=== PATIENT | male | born 1990 | race Caucasian/White ===

== ENCOUNTER 2017-03-14 17:53 | Emergency (ER) | payer SELFPAY ==
--- NOTE | 2017-03-14 17:58 | EDM.PDOC ---
<Ziyad Vital - Last Filed: 03/14/17 18:19> ED HPI GENERAL MEDICAL PROBLEM - General Stated Complaint: UNK Time Seen by Provider: 03/14/17 17:57 Source of Information: Reports: Patient - History of Present Illness INITIAL COMMENTS - FREE TEXT/NARRATIVE: HISTORY AND PHYSICAL: History of present illness: []Patient was found unresponsive at scene per EMS had been using some opiates they gave 4 mg of Narcan patient now awake and alert. He states that he was smoking opiates on EMS arrival O2 sat was at 50% with only 4 breaths per minute Alert oriented no distress at current no fever nausea vomiting chills sweats no chest pain shortness breath headache dizziness palpitation about a urine symptoms Review of systems: As per history of present illness and below otherwise all systems reviewed and negative. Past medical history: As per history of present illness and as reviewed below otherwise noncontributory. Surgical history: As per history of present illness and as reviewed below otherwise noncontributory. Social history: No reported history of drug or alcohol abuse. Family history: As per history of present illness and as reviewed below otherwise noncontributory. Physical exam: HEENT: Atraumatic, normocephalic, pupils reactive, negative for conjunctival pallor or scleral icterus, mucous membranes moist, throat clear, neck supple, nontender, trachea midline. Lungs: Clear to auscultation, breath sounds equal bilaterally, chest nontender. Heart: S1S2, regular, negative for clicks, rubs, or JVD. Abdomen: Soft, nondistended, nontender. Negative for masses or hepatosplenomegaly. Negative for costovertebral tenderness. Pelvis: Stable nontender. Genitourinary: Deferred. Rectal: Deferred. Extremities: Atraumatic, negative for cords or calf pain. Neurovascular unremarkable. Neuro: Awake, alert, oriented. Cranial nerves II through XII unremarkable. Cerebellum unremarkable. Motor and sensory unremarkable throughout. Exam nonfocal. Diagnostics: []Lab as below EKG Chest 1 view Glucose EMS check 248 Therapeutics: []Narcan 4 mg provided via EMS 1 L normal saline bolus Patient will be endorsed to Dr. Almonte to follow lab and disposition as appropriate Impression: []Hypoxia resolved Respiratory suppression resolved Opioid overdose with reversal Definitive disposition and diagnosis as appropriate pending reevaluation and review of above. - Related Data Allergies Allergy/AdvReac Type Severity Reaction Status Date / Time No Known Allergies Allergy Verified 03/30/14 15:30 Home Meds: Home Meds . [No Known Home Meds] 03/14/17 [History] Course - Vital Signs Last Recorded V/S: Last Vital Signs Temp 36.9 C 03/14/17 18:15 Pulse 105 H 03/14/17 18:15 Resp 18 03/14/17 18:15 BP 127/84 03/14/17 18:15 Pulse Ox 97 03/14/17 18:15 - Orders/Labs/Meds Orders: Active Orders 24 hr Category Date Time Status EKG Documentation Completion [RC] STAT Care 03/14/17 17:59 Active Chest 1V Frontal [CR] Stat Exams 03/14/17 17:59 Taken Labs: Laboratory Tests 03/14/17 03/14/17 03/14/17 Range/Units 18:30 18:30 18:30 WBC 13.06 H (4.0-11.0) K/uL RBC 4.62 (4.50-5.90) M/uL Hgb 14.5 (13.0-17.0) g/dL Hct 42.5 (38.0-50.0) % MCV 92.0 (80.0-98.0) fL MCH 31.4 (27.0-32.0) pg MCHC 34.1 (31.0-37.0) g/dL RDW Std Deviation 44.6 (28.0-62.0) fl RDW Coeff of Jenny 13 (11.0-15.0) % Plt Count 181 (150-400) K/uL MPV 11.30 (7.40-12.00) fL Neut % (Auto) 77.1 (48.0-80.0) % Lymph % (Auto) 14.2 L (16.0-40.0) % Weld % (Auto) 6.0 (0.0-15.0) % Eos % (Auto) 2.5 (0.0-7.0) % Baso % (Auto) 0.2 (0.0-1.5) % Neut # (Auto) 10.1 H (1.4-5.7) K/uL Lymph # (Auto) 1.9 (0.6-2.4) K/uL Weld # (Auto) 0.8 (0.0-0.8) K/uL Eos # (Auto) 0.3 (0.0-0.7) K/uL Baso # (Auto) 0.0 (0.0-0.1) K/uL Nucleated RBC % 0.0 /100WBC Nucleated RBCs # 0 K/uL Sodium 137 (136-146) mmol/L Potassium 4.1 (3.5-5.1) mmol/L Chloride 107 (98-110) mmol/L Carbon Dioxide 23 (21-31) mmol/L BUN 14 (6.0-23.0) mg/dL Creatinine 1.1 (0.6-1.5) mg/dL Est Cr Clr Drug Dosing 106.30 mL/min Estimated GFR (MDRD) > 60.0 ml/min Glucose 179 H (60-110) mg/dL Calcium 8.1 L (8.8-10.8) mg/dL Total Bilirubin 0.3 (0.1-1.5) mg/dL AST 19 (5-40) IU/L ALT 17 (8-54) IU/L Alkaline Phosphatase 67 (40-150) Troponin I < 0.10 (0.0-0.29) NG/ML Total Protein 6.2 (6.0-8.0) g/dL Albumin 3.6 (3.5-5.0) g/dL Globulin 2.6 (2.0-3.5) g/dL Albumin/Globulin Ratio 1.4 (1.3-2.8) Meds: Medications Discontinued Medications Generic Name Dose Route Start Last Admin Trade Name Freq PRN Reason Stop Dose Admin Sodium Chloride 1,000 mls @ 999 mls/hr 03/14/17 17:59 03/14/17 18:10 Normal Saline IV 03/14/17 18:59 999 mls/hr STAT ONE Administration Departure - Departure Disposition: Home, Self-Care 01 Clinical Impression: Opioid overdose Qualifiers: Encounter type: initial encounter Injury intent: accidental or unintentional Qualified Code(s): T40.2X1A - Poisoning by other opioids, accidental ( unintentional), initial encounter Accidental overdose Qualifiers: Encounter type: initial encounter Qualified Code(s): T50.901A - Poisoning by unspecified drugs, medicaments and biological substances, accidental ( unintentional), initial encounter - Discharge Information Additional Instructions: The following information is given to patients seen in the emergency department who are being discharged to home. This information is to outline your options for follow-up care. We provide all patients seen in our emergency department with a follow-up referral. The need for follow-up, as well as the timing and circumstances, are variable depending upon the specifics of your emergency department visit. If you don't have a primary care physician on staff, we will provide you with a referral. We always advise you to contact your personal physician following an emergency department visit to inform them of the circumstance of the visit and for follow-up with them and/or the need for any referrals to a consulting specialist. The emergency department will also refer you to a specialist when appropriate. This referral assures that you have the opportunity for followup care with a specialist. All of these measure are taken in an effort to provide you with optimal care, which includes your followup. Under all circumstances we always encourage you to contact your private physician who remains a resource for coordinating your care. When calling for followup care, please make the office aware that this follow-up is from your recent emergency room visit. If for any reason you are refused follow-up, please contact the [facility] emergency department at and ask to speak to the emergency department charge nurse. [facility] Primary care- [place] [address] Please stop using drugs. Follow-up with one of our clinic physicians also connect with outpatient services if you need to return to ER as needed and as discussed <Amanda Bland - Last Filed: 03/14/17 19:13> ED HPI GENERAL MEDICAL PROBLEM - History of Present Illness INITIAL COMMENTS - FREE TEXT/NARRATIVE: As Dr. Bland dictating an addendum note as I assumed care of this patient at 1900 hrs. Currently the patient is awake alert oriented and speaking with me and in no respiratory distress with 99% sats on room air. He says he feels a little tired which I told him is not a typical as what ever drugs he did earlier are still in his system. I explained to him about Narcan and works and that he would need to be observed for some more time and if he was doing well that he could be discharged. He states understanding. I will plan on discharging him pending his clinical picture and this observation period. I canceled the UA and the UDS has in light of my conversation with him this is not going to change our care plan. Patient has a friend/family at the bedside who will be driving him home. Impression: Opioid overdose accidental with respiratory distress and hypoxia reversed stable ED ROS GENERAL - Review of Systems Review Of Systems: ROS reveals no pertinent complaints other than HPI. ED EXAM, GENERAL - Physical Exam Exam: See Below (See dictation) Departure - Departure Time of Disposition: 19:45 Condition: Good
[2017-03-14] MEDS ORDERED: Sodium Chloride 0.9% 1,000 ML IV ONE (17:59)
[2017-03-14 18:55] LABS: CHLORIDE,CL 107 mmol/L (98-110); SODIUM,NA 137 mmol/L (136-146)
--- NOTE | 2017-03-15 09:48 | CR ---
EXAM DATE: 03/14/17 PATIENT'S AGE: 26 Patient: GRECIA ROSS Facility: [place], [place] Site . Site : 1990 Study: XRay Chest [id number]/12/2017 6:25:44 PM Ordering Physician: Airam Lackey Final Report: INDICATION: Drug overdose, found unresponsive. alert and orientated in upon arrival of ER TECHNIQUE: Chest radiograph 1 view COMPARISON: None FINDINGS: Cardiovascular and mediastinum: The cardiac silhouette is normal in appearance and size. Mediastinum is within normal limits. Lungs and pleural spaces: Both lungs are unremarkable in appearance. No sign of pleural effusion. No pneumothorax is seen. Bones and soft tissues: No significant findings. IMPRESSION: 1. No acute cardiopulmonary disease seen. Dictated by: Wali White MD @ 03/14/2017 18:32:44 (Electronic Signature) Report Signed by Proxy. [facility]PITALJairo
== END 2017-03-14 20:17 | disposition home or self-care (01) ==
LOC: MW.ED 17:53
DX: T40.2X1A Poisoning by other opioids, accidental (unintentional), initial encounter (principal)
CPT/HCPCS: 36415; 71010; 80053; 84484; 85025; 96360; 99285; J7040; 99283

== ENCOUNTER 2017-04-21 15:19 | Emergency (ER) | payer SELFPAY ==
--- NOTE | 2017-04-21 16:41 | EDM.PDOC ---
ED HPI GENERAL MEDICAL PROBLEM - General Chief Complaint: ENT Problem Stated Complaint: SORE THROAT Time Seen by Provider: 04/21/17 15:20 - History of Present Illness INITIAL COMMENTS - FREE TEXT/NARRATIVE: HISTORY AND PHYSICAL: History of present illness: Patient is a 26-year-old male who presents to the emergency room with complaints of a sore throat, dry cough and fatigue 3 days. He is concerned he has strep throat. Denies any fever or chills. Denies any chest pain or shortness of breath. Denies any abdominal pain, nausea, vomiting or diarrhea. No history of smoking. Has not received the 2017/2017 influenza vaccine Review of systems: As per history of present illness and below otherwise all systems reviewed and negative. Past medical history: As per history of present illness and as reviewed below otherwise noncontributory. Surgical history: As per history of present illness and as reviewed below otherwise noncontributory. Social history: No reported history of drug or alcohol abuse. Family history: As per history of present illness and as reviewed below otherwise noncontributory. Physical exam: HEENT: Atraumatic, normocephalic, pupils reactive, negative for conjunctival pallor or scleral icterus, mucous membranes moist, mild erythema to the posterior oropharynx without exudate, no lymphadenopathy, neck supple, nontender , trachea midline. Lungs: Clear to auscultation, breath sounds equal bilaterally, chest nontender. Heart: S1S2, regular, negative for clicks, rubs, or JVD. Abdomen: Soft, nondistended, nontender. Negative for masses or hepatosplenomegaly. Negative for costovertebral tenderness. Pelvis: Stable nontender. Genitourinary: Deferred. Rectal: Deferred. Extremities: Atraumatic, negative for cords or calf pain. Neurovascular unremarkable. Neuro: Awake, alert, oriented. Cranial nerves II through XII unremarkable. Cerebellum unremarkable. Motor and sensory unremarkable throughout. Exam nonfocal. Diagnostics: Strep Therapeutics: [] Impression: Sore throat Viral illness Plan: 1. Please use the promethazine with codeine responsibly. You may take this every 4-6 hours as needed. Do not take while driving or needing to be functioning at school or work as this may cause drowsiness. He may take Tylenol and/or ibuprofen as needed for further pain relief. 2. Warm salt water gargles as needed 2-3 times per day area please get a new toothbrush once your sore throat has resolved. 3. Follow-up with your primary care provider in the next 1-2 days. Return to the ED as needed and as discussed. Definitive disposition and diagnosis as appropriate pending reevaluation and review of above. - Related Data Allergies Allergy/AdvReac Type Severity Reaction Status Date / Time No Known Allergies Allergy Verified 04/21/17 15:59 Home Meds: Home Meds . [No Known Home Meds] 03/14/17 [History] Past Medical History - Past Health History Medical/Surgical History: Denies Medical/Surgical History Psychiatric History: Reports: Addiction Social & Family History - Family History Family Medical History: Noncontributory - Tobacco Use Smoking Status *Q: Former Smoker Years of Tobacco use: 2 Packs/Tins Daily: 0.5 Used Tobacco, but Quit: Yes Month Tobacco Last Used: 04/2017 - Caffeine Use Caffeine Use: Reports: Coffee - Alcohol Use Days Per Week of Alcohol Use: 2 Number of Drinks Per Day: 5 Total Drinks Per Week: 10 - Recreational Drug Use Recreational Drug Use: Yes Recreational Drug Type: Reports: Marijuana/Hashish Other Recreational Drug Type: opiods Recreational Drug Use Frequency: Rarely ED ROS ENT - Review of Systems Review Of Systems: ROS reveals no pertinent complaints other than HPI. ED EXAM, ENT - Physical Exam Exam: See Below (See dictation) Course - Vital Signs Last Recorded V/S: Last Vital Signs Temp 37.6 C 04/21/17 15:59 Pulse 112 H 04/21/17 15:59 Resp 18 04/21/17 15:59 BP 136/67 04/21/17 15:59 Pulse Ox 95 04/21/17 15:59 - Orders/Labs/Meds Orders: Active Orders 24 hr Category Date Time Status CULTURE STREP A CONFIRMATION [] Stat Lab 04/21/17 15:54 Results STREP SCRN A RAPID W CULT CONF [RM] Stat Lab 04/21/17 15:54 Results Departure - Departure Time of Disposition: 16:39 Disposition: Home, Self-Care 01 Clinical Impression: Sore throat (viral), Viral illness - Discharge Information Referrals: PCP,None [Primary Care Provider] - Forms: ED Department Discharge Additional Instructions: My general discharge The following information is given to patients seen in the emergency department who are being discharged to home. This information is to outline your options for follow-up care. We provide all patients seen in our emergency department with a follow-up referral. The need for follow-up, as well as the timing and circumstances, are variable depending upon the specifics of your emergency department visit. If you don't have a primary care physician on staff, we will provide you with a referral. We always advise you to contact your personal physician following an emergency department visit to inform them of the circumstance of the visit and for follow-up with them and/or the need for any referrals to a consulting specialist. The emergency department will also refer you to a specialist when appropriate. This referral assures that you have the opportunity for follow-up care with a specialist. All of these measure are taken in an effort to provide you with optimal care, which includes your follow-up. Under all circumstances we always encourage you to contact your private physician who remains a resource for coordinating your care. When calling for follow-up care, please make the office aware that this follow-up is from your recent emergency room visit. If for any reason you are refused follow-up, please contact the [facility] Emergency Department at and asked to speak to the emergency department charge nurse. [facility] [address] [place] [id number] 1. Please use the promethazine with codeine responsibly. You may take this every 4-6 hours as needed. Do not take while driving or needing to be functioning at school or work as this may cause drowsiness. He may take Tylenol and/or ibuprofen as needed for further pain relief. 2. Warm salt water gargles as needed 2-3 times per day area please get a new toothbrush once your sore throat has resolved. 3. Follow-up with your primary care provider in the next 1-2 days. Return to the ED as needed and as discussed. - My Orders Last 24 Hours: My Active Orders 04/21/17 15:54 CULTURE STREP A CONFIRMATION [RM] Stat STREP SCRN A RAPID W CULT CONF [RM] Stat - Assessment/Plan Last 24 Hours: My Active Orders 04/21/17 15:54 CULTURE STREP A CONFIRMATION [RM] Stat STREP SCRN A RAPID W CULT CONF [RM] Stat
== END 2017-04-21 17:23 | disposition home or self-care (01) ==
LOC: MW.ED 15:19
DX: J02.8 Acute pharyngitis due to other specified organisms (principal); B34.9 Viral infection, unspecified; Z87.891 Personal history of nicotine dependence
CPT/HCPCS: 87081; 87880; 99282; 99283